=== PATIENT | female | born 1990 | race Caucasian/White ===

== ENCOUNTER → 2016-12-04 | Outpatient (CLI) | payer OTHER ==
[~2016-12-04] MED LIST: OXYC-57 PO; PRENTAB26 PO
[2016-12-04 18:23] LABS: URINE APPEARANCE CLEAR (CLEAR); URINE BILIRUBIN NEG (NEG); URINE COLOR YELLOW; URINE EPITHELIAL CELL AUTO >30 /lpf (0-5); URINE NITRITE NEG (NEG); URINE PH 6.5 (4.5-7.5); URINE SPECIFIC GRAVITY 1.012 (1.000-1.030); UROBILINOGEN NEG (NEG)
[2016-12-04 18:25] LABS: MANUAL MICROSCOPIC REQUIRED? NO; REVIEW REQ? YES
== END | disposition home or self-care (01) ==
LOC: C.LABSPEC 17:24
PROVIDERS: ATTEND Obstetrics & Gynecology
DX: Z34.93 Encounter for supervision of normal pregnancy, unspecified, third trimester (principal)

== ENCOUNTER → 2016-12-04 | Outpatient (CLI) | payer OTHER ==
[2016-12-04 16:19] LABS: HEMATOCRIT 33.3 % (37-47)
[2016-12-04 18:16] LABS: GTGD 50 Grams
== END | disposition home or self-care (01) ==
LOC: C.LAB1850 15:06
PROVIDERS: ATTEND Obstetrics & Gynecology
DX: Z34.93 Encounter for supervision of normal pregnancy, unspecified, third trimester (principal)

== ENCOUNTER → 2017-01-18 | Outpatient (CLI) | payer OTHER ==
[2017-01-18 09:53] LABS: BASO % 0.1 %; BASO ABS # 0.01 K/uL (0-0.2); COMPLETE YES; EOS % 0.8 %; HEMATOCRIT 35.8 % (37-47); LYMPH % 14.7 %; LYMPH ABS # 1.22 K/uL (1.2-3.4); MEAN CELL VOLUME 86.7 fL (80-100); MEAN CORPUSCULAR HEMOGLOBIN 28.8 pg (25-34); MEAN CORPUSCULAR HGB CONC 33.2 g/dl (32-36); MEAN PLATELET VOLUME 11.4 fL (7.4-10.4); MONO % 6.3 %; NEUT % 77.1 %; PLATELET COUNT 142 K/uL (130-400); RED BLOOD COUNT 4.13 M/uL (4.2-5.4); WHITE BLOOD COUNT 8.31 K/uL (4.8-10.8)
[2017-01-18 10:19] LABS: ALT/SGPT 20 U/L (12-78); AST/SGOT 22 U/L (15-37); CREATININE 0.76 mg/dl (0.60-1.20); URIC ACID 4.6 mg/dl (2.6-7.2)
[2017-01-18 10:23] LABS: URINE TOTAL PROTEIN 15.1 mg/dl (0-11.9)
[2017-01-18 11:28] LABS: URINE TOTAL PROTEIN CALC 324.7 mg/24 hr (0-149.1)
== END | disposition home or self-care (01) ==
LOC: C.LAB 08:28
PROVIDERS: ATTEND Obstetrics & Gynecology
DX: O10.919 Unspecified pre-existing hypertension complicating pregnancy, unspecified trimester (principal); Z3A.00 Weeks of gestation of pregnancy not specified

== ENCOUNTER → 2017-01-26 | Outpatient (CLI) | payer OTHER ==
[2017-01-26 16:27] LABS: BASO % 0.1 %; BASO ABS # 0.01 K/uL (0-0.2); COMPLETE YES; EOS % 0.5 %; HEMATOCRIT 33.5 % (37-47); IG% 1.1 %; LYMPH % 13.9 %; LYMPH ABS # 1.29 K/uL (1.2-3.4); MEAN CELL VOLUME 84.8 fL (80-100); MEAN CORPUSCULAR HEMOGLOBIN 28.6 pg (25-34); MEAN CORPUSCULAR HGB CONC 33.7 g/dl (32-36); MEAN PLATELET VOLUME 11.4 fL (7.4-10.4); MONO % 6.5 %; NEUT % 77.9 %; PLATELET COUNT 145 K/uL (130-400); RED BLOOD COUNT 3.95 M/uL (4.2-5.4); WHITE BLOOD COUNT 9.29 K/uL (4.8-10.8)
[2017-01-26 17:05] LABS: ALT/SGPT 28 U/L (12-78); AST/SGOT 35 U/L (15-37); BLOOD UREA NITROGEN 9 mg/dl (7-18); BUN/CREATININE RATIO 13.9 (10-20); CALCIUM 8.9 mg/dl (8.5-10.1); CARBON DIOXIDE 23 mmol/L (21-32); CHLORIDE 109 mmol/L (98-107); CREATININE 0.68 mg/dl (0.60-1.20); GLUCOSE 79 mg/dl (70-99); SODIUM 142 mmol/L (136-145)
[2017-01-26 17:08] LABS: ALB/GLOB RATIO 0.7 (0.9-2); ALKALINE PHOSPHATASE 164 U/L (45-117)
== END | disposition home or self-care (01) ==
LOC: C.LAB1850 15:54
PROVIDERS: ATTEND Obstetrics & Gynecology
DX: O14.00 Mild to moderate pre-eclampsia, unspecified trimester (principal); Z3A.00 Weeks of gestation of pregnancy not specified

== ENCOUNTER 2017-02-04 06:55 | Inpatient (IN) | payer OTHER ==
[2017-02-03 15:12] VITALS: BMI 42.0
[2017-02-03 16:02] LABS: BASO % 0.1 %; BASO ABS # 0.01 K/uL (0-0.2); COMPLETE YES; EOS % 0.4 %; HEMATOCRIT 34.2 % (37-47); IG% 1.3 %; LYMPH % 15.1 %; LYMPH ABS # 1.37 K/uL (1.2-3.4); MEAN CELL VOLUME 86.4 fL (80-100); MEAN CORPUSCULAR HEMOGLOBIN 28.5 pg (25-34); MEAN PLATELET VOLUME 11.2 fL (7.4-10.4); MONO % 7.7 %; NEUT % 75.4 %; PLATELET COUNT 146 K/uL (130-400); RED BLOOD COUNT 3.96 M/uL (4.2-5.4); WHITE BLOOD COUNT 9.07 K/uL (4.8-10.8)
[2017-02-03 16:12] LABS: URINE APPEARANCE CLEAR (CLEAR); URINE BILIRUBIN NEG (NEG); URINE COLOR YELLOW; URINE EPITHELIAL CELL AUTO >30 /lpf (0-5); URINE NITRITE NEG (NEG); URINE PH 6.5 (4.5-7.5); URINE SPECIFIC GRAVITY 1.019 (1.000-1.030); UROBILINOGEN NEG (NEG)
[2017-02-03 16:22] LABS: MANUAL MICROSCOPIC REQUIRED? NO; REVIEW REQ? NO
[2017-02-04] VITALS (10 sets, daily range): BP systolic 109–127; BP diastolic 70–83; PULSE 96–98; TEMP 37–37.2; O2SAT 94–97; Ht 142.2 cm; Wt 85.3 kg
[~2017-02-04] VITALS: Ht 142.2 cm; Wt 85.3 kg
[~2017-02-04 06:55] MED LIST changes: +CEFAZOLIN IV 2,000 MG in DEXTROSE 5% 50ML IV SCH; +CITRIC ACID/SODIUM CITRATE 15 ML UDC PO SCH; +EpHEDrine SULFATE INJ 50 MG/ML AMP ONE; +FENTANYL CITRATE INJ 50 MCG/1 ML 2 ML VIAL ONE; +LACTATED RINGER'S 1000ML 1,000 ML IV SCH; +MoRPHine SULFATE PF 1 MG/ML 10 ML AMP/VIAL ONE; +ONDANSETRON INJ 2 MG/ML 2 ML VIAL ONE; -OXYC-57 PO; +OXYTOCIN INJ 10 UNITS/ML VIAL ONE; +PHENYLEPHRINE HCL INJ 10 MG/ML VIAL ONE
[2017-02-04 07:34] LABS: HEMATOCRIT 33.8 % (37-47); MEAN CELL VOLUME 86.2 fL (80-100); MEAN CORPUSCULAR HEMOGLOBIN 27.8 pg (25-34); MEAN PLATELET VOLUME 10.5 fL (7.4-10.4); PLATELET COUNT 133 K/uL (130-400); RED BLOOD COUNT 3.92 M/uL (4.2-5.4); WHITE BLOOD COUNT 8.21 K/uL (4.8-10.8)
[2017-02-04 07:35] LABS: MEAN CORPUSCULAR HGB CONC 32.2 g/dl (32-36)
--- NOTE | 2017-02-04 07:57 | HISTORY & PHYSICAL EXAMINATION ---
DATE OF ADMISSION: 02/04/2017 REASON FOR ADMISSION: Planned repeat section. HISTORY OF PRESENT ILLNESS: This is a 26-year-old G2, P1-0-0-1, who presents with a at term for a planned repeat section. has been complicated by chronic hypertension with superimposed mild preeclampsia. She is also group B Strep positive. testing has been reassuring and at the present time she has good movement, no contractions, leakage of fluid or bleeding. ALLERGIES: None. MEDICATIONS: vitamins. PAST MEDICAL HISTORY: Varicella in childhood. PAST SURGICAL HISTORY: Oral surgery and in the past. SOCIAL HISTORY: , , negative x3. OBSTETRIC HISTORY: Prior 40 week section due to failure to progress with a 6 pound 7 ounce female baby in 2013. That was also complicated by induced hypertension. PHYSICAL EXAMINATION: Exam today vitals are within normal limits, see record. Her fetus has heart tones 145, moderate variability, positive excels, no decels. Her toco is irritable but not appreciated by the patient as any painful contractions. CERVIX EXAMINATION: Deferred at this time. HEART: Shows regular rate and rhythm. LUNGS: Clear to auscultation bilaterally. ABDOMEN: Gravid and soft, nontender. ASSESSMENT AND PLAN: A cueto intrauterine at 37+ weeks with superimposed mild preeclampsia on chronic hypertension for repeat section. The patient is preparing for the operating room now and will be brought to surgery shortly.
[2017-02-04] MEDS ORDERED: LACTATED RINGER'S 1000ML 1,000 ML IV SCH (08:43)
[2017-02-04] MEDS ORDERED: OXYTOCIN INJ 30 UNITS in LACTATED RINGER'S 1000ML 1,000 ML IV SCH (08:43)
[2017-02-04] MEDS ORDERED: LANOLIN OINT EXT PRN ×2 (08:45)
[2017-02-04] MEDS ORDERED: BENZOCAINE 20% AER SPR 82.5 GM CAN EXT PRN (08:45)
[2017-02-04] MEDS ORDERED: DIPHTHERIA/TETANUS/PERTUSSIS 0.5 ML SYR/VIAL IM. ONE (08:45)
[2017-02-04] MEDS ORDERED: HYDROCORTISONE ACETATE 25 MG SUPP PR PRN (08:45)
[2017-02-04] MEDS ORDERED: SUPERCREAM 0.870 % 15GM JAR EXT PRN (08:45)
--- NOTE | 2017-02-04 08:47 | [facility] Post Operative Brief Note ---
Immediate Operative Summary Operative Date Feb 04, 2017. Pre-Operative Diagnosis 1. Prior Caesarean Section 2. Declines Trial of Labor Post-Operative Diagnosis Same Procedure(s) Performed Repeat lower uterine transverse caesarean section for the of a viable female child at 0814. Surgeon Dr. Mcmahan Loft Worker Head Surgeon(s) Dr. Diaz Estimated Blood Loss 500cc Findings Normal tubes/ovaries bilaterally. Specimens 1. Placenta: Exam 2. Cord blood obtained Complication(s) None Disposition L&D
--- NOTE | 2017-02-04 08:52 | [facility] Post Operative Brief Note ---
Immediate Operative Summary Operative Date Feb 04, 2017. Pre-Operative Diagnosis 1. Prior Caesarean Section 2. Declines Trial of Labor Post-Operative Diagnosis Same Procedure(s) Performed Repeat lower uterine transverse caesarean section for the of a viable female child at 0814. Surgeon Dr[address] Mcmahan Sommelier Surgeon(s) Dr. Diaz Estimated Blood Loss 500cc Findings Delivered a viable female , APGARS 9,9. Weight 7 lbs 12oz. Normal uterus , fallopian tubes and ovaries bilaterally Specimens 1. Placenta: Exam 2. Cord blood obtained Drains Castro to gravity Anesthesia spinal Complication(s) None Disposition L&D
[2017-02-04] MEDS ORDERED: NALOXONE HCL INJ 0.08 MG in SYRINGE 1.8 ML IV PRN (08:54)
[2017-02-04] MEDS ORDERED: SODIUM CHLORIDE 0.9% 1000ML 1,000 ML IV PRN (08:54)
[2017-02-04] MEDS ORDERED: LACTATED RINGER'S 1000ML 500 ML IV PRN (08:54)
--- NOTE | 2017-02-04 08:56 | Anesthesiology Progress Note ---
Anesthesia Post Op Note Date & Time Feb 04, 2017 at 08:54 Notes Mental Status: alert / awake / arousable, participated in evaluation Pt Amnestic to Procedure: No (recall as expected) Nausea / Vomiting: adequately controlled Pain: adequately controlled Airway Patency, RR, SpO2: stable & adequate BP & HR: stable & adequate Hydration State: stable & adequate Neuraxial Anesthesia: was administered, sensory block is resolving Anesthetic Complications: no major complications apparent Pt had C/S under spinal. Her anesthetic course was totally unremarkable. Post- op vitals: BP 144/89, HR 73, RR 18, SpO2 98% on RA, T 36.8.
[2017-02-04] MEDS ORDERED: EpHEDrine SULFATE INJ 50 MG/ML AMP IV PRN (09:00)
[2017-02-04] MEDS ORDERED: NALBUPHINE HCL INJ 10 MG/ML AMP IV PRN (09:00)
[2017-02-04] MEDS ORDERED: MoRPHine SULFATE PF 1 MG/ML 10 ML AMP/VIAL EPI PRN (09:00)
[2017-02-04] MEDS ORDERED: NO NARCOTICS OR SEDATIVES SCH (09:00)
[2017-02-04] MEDS ORDERED: NALOXONE HCL 0.4 MG/1 ML VIAL/CARP IV PRN (09:00)
[2017-02-04] MEDS ORDERED: MoRPHine SULFATE 2 MG/ML CARP IV PRN (09:00)
[2017-02-04] MEDS ORDERED: ONDANSETRON INJ 2 MG/ML 2 ML VIAL IV PRN (09:00)
[2017-02-04] MEDS ORDERED: KETOROLAC TROMETHAMINE 30 MG/ML VIAL IV. PRN (09:00)
[2017-02-04] MEDS ORDERED: MEPERIDINE HCL 25 MG/ML CARP IV PRN (09:00)
[2017-02-04] MEDS: SIMETHICONE 80 MG CHEW PO SCH ×4 (09:00→19:45)
[2017-02-04] MEDS ORDERED: PROMETHAZINE HCL INJ 25 MG in SODIUM CHLORIDE 0.9% 50ML 50 ML IV PRN (09:00)
[2017-02-04] MEDS ORDERED: DiphenhydrAMINE HCL 50 MG/ML VIAL IV PRN (09:00)
--- NOTE | 2017-02-04 09:19 | OPERATIVE REPORT ---
DATE OF OPERATION: 02/04/2017 PREOPERATIVE DIAGNOSES: 1. Campos intrauterine at 37 and 1. 2. Prior section. 3. Declines trial of labor. POSTOPERATIVE DIAGNOSES: Same. PROCEDURE: Repeat lower transverse uterine section for the of a viable female child at 08:14 a.m. SURGEON: Dr. Giana Mcmahan. STRUCTURAL IRONWORKER: PGY-1. ESTIMATED BLOOD LOSS: 500 mL. FINDINGS: Normal tubes and ovaries bilaterally. SPECIMENS: Placenta for exam and cord blood obtained. COMPLICATIONS: None. DISPOSITION: Stable in labor and delivery. DESCRIPTION OF PROCEDURE: Rosa was placed on the table in the supine position with a leftward tilt, prepped and draped in standard sterile fashion and a hard time-out was taken prior to proceeding. Please note spinal anesthesia had been established. Once anesthesia was tested and found to be adequate, a Pfannenstiel incision was created at the side of a prior scar. This was carried down sharply to the fascia, which was nicked using a scalpel and extended using a Maryam clamp and Bovie electrocautery. Saturnino clamps were then used to elevate the fascia, which was sharply and bluntly dissected off the underlying rectus muscle. The midline of the rectus was identified and sharply . Peritoneum was bluntly entered and this was then extended using pressure from the kapok and cotton machine operator's hands. Bladder blade was placed and a bladder flap was created. A low transverse uterine incision was then made in the usual manner with final entry to the uterus being made in a blunt manner using the surgeon's finger. Clear fluid was then encountered. The hysterotomy was extended laterally and then the head of the was elevated to the hysterotomy and the was delivered using mild fundal pressure. A loose nuchal cord x1 was reduced after delivery of head. Of note, the made respiratory efforts and was actually crying after only the head was delivered and as soon as the body was delivered, all 4 extremities were noted to move. The cord was doubly clamped and taken to the warmer by Dr. Henning who was scrubbed for delivery. The placenta was then delivered manually after collection of cord blood. Uterus was exteriorized and cleared of all clot and debris using a dry and damp lap sponge. Hysterotomy was then repaired in the usual 2-layer fashion using 0 Vicryl suture in a running locked manner with an imbricating second layer. Tubes and ovaries were examined and found to be normal bilaterally. The uterus was gently reapproximated to the abdomen and the gutters were cleared of all clot and debris using damp lap sponges. Hysterotomy was again examined and found to be hemostatic. The rectus were allowed to reapproximate naturally and the fascia was then closed using #1 Vicryl suture in a running nonlocked manner. At the completion of the repair, the fascia was examined and found to be free of defect. The subcutaneous tissue was copiously irrigated and then gently reapproximated using 3-0 chromic suture after which a 4-0 Monocryl was used to create a subcuticular skin closure and a Dermabond dressing was applied. The patient was then returned to her recovery room in stable condition with the Castro draining clear yellow urine. I attest to the content of the Intraoperative Record and any orders documented therein. Any exceptio ns are noted below.
[2017-02-04] MEDS ORDERED: MISOPROSTOL 200 MCG TAB ONE (10:11)
[2017-02-04] MEDS: DOCUSATE SODIUM 100 MG CAP PO SCH (19:45)
[2017-02-05] VITALS (7 sets, daily range): BP systolic 110–128; BP diastolic 71–84; PULSE 86–88; TEMP 36.4–36.9; O2SAT 94–98
[2017-02-05] MEDS ORDERED: DC INTRASPINAL MORPHINE SCH (02:00)
[2017-02-05] MEDS ORDERED: MEPERIDINE HCL 50 MG/ML CARP IV PRN (02:01)
[2017-02-05] MEDS ORDERED: ONDANSETRON INJ 2 MG/ML 2 ML VIAL IV PRN (02:01)
[2017-02-05] MEDS ORDERED: MEPERIDINE HCL 75 MG/ML CARP IV PRN (02:01)
[2017-02-05] MEDS ORDERED: KETOROLAC TROMETHAMINE 30 MG/ML VIAL IV. PRN (02:01)
[2017-02-05] MEDS ORDERED: OXYCODONE/ACETAMINOPHEN 5-325 TAB PO PRN (02:01)
[2017-02-05] MEDS ORDERED: PROMETHAZINE HCL INJ 25 MG in SODIUM CHLORIDE 0.9% 50ML 50 ML IV PRN (02:01)
[2017-02-05] MEDS ORDERED: DiphenhydrAMINE HCL 50 MG/ML VIAL IV PRN (02:01)
--- NOTE | 2017-02-05 07:01 | Progress Note ---
Subjective Feb 05, 2017. Subjective conversation w/ patient, physical exam Ambulation: limited ambulation (because of zepeda) Passing Gas: Yes Diet Tolerance: Regular Diet Lochia: Moderate Feeding Type: Breast Feeding Pain: 1/10 improves with medication Comment: Patient was seen at the bedside. No acute event overnight. Review of Systems Constitutional: No fever Respiratory: No cough, No shortness of breath Cardiac: No chest pain Breast: No breast lump Abdomen: No nausea, No pain, No vomiting Female : No dysuria denies headache Objective Vital Signs Date Time Temp Pulse Resp B/P Pulse Ox O2 Delivery O2 Flow Rate FiO2 02/05/17 03:25 36.8 86 16 110/71 95 Room Air 02/05/17 03:25 16 95 02/05/17 02:30 18 95 02/05/17 01:30 16 96 02/05/17 00:30 18 97 02/04/17 23:35 37.2 98 18 109/70 96 Room Air 02/04/17 23:35 96 Room Air 02/04/17 23:35 18 96 02/04/17 22:00 18 95 02/04/17 21:00 18 97 02/04/17 20:00 20 96 02/04/17 19:00 18 94 02/04/17 18:00 18 94 02/04/17 17:35 37.0 96 18 122/79 95 Room Air 02/04/17 17:00 18 96 02/04/17 16:00 96 Room Air 02/04/17 16:00 16 96 02/04/17 16:00 37.1 96 16 112/73 96 Room Air 02/04/17 14:02 96 Room Air 02/04/17 14:02 37.1 98 16 127/83 97 Room Air 02/04/17 14:02 16 97 02/04/17 14:02 Room Air Physical Exam General Appearance: WELL-APPEARING, WD/WN, obese Respiratory/Chest: chest non-tender, lungs clear, normal breath sounds Cardiovascular: regular rate, rhythm Abdomen: normal bowel sounds, non tender, soft Fundus: Firm, Relation to Umbilicus (about 1cm below) Incision Description: Clean, Dry & Intact Extremities: non-tender, no calf tenderness, + pedal edema Laboratory Results Last 24 Hours Test 02/04/17 07:25 02/05/17 06:00 White Blood Count 8.21 K/uL Red Blood Count 3.92 M/uL Hemoglobin 10.9 g/dL Hematocrit 33.8 % Mean Corpuscular Volume 86.2 fL Mean Corpuscular Hemoglobin 27.8 pg Mean Corpuscular Hemoglobin Concent 32.2 g/dl RDW Standard Deviation 43.3 fL RDW Coefficient of Variation 13.9 % Platelet Count 133 K/uL Mean Platelet Volume 10.5 fL Nucleated RBC Absolute Count (auto) 0.02 K/uL Nucleated Red Blood Cells % 0.2 % Medications Current Inpatient Medications Medications (Trade) Dose Ordered Sig/Abrahan Route Start Time Stop Time Status Last Admin Dose Admin Lactated Ringer's (Lr 1000ml) 1,000 ml @ 125 mls/hr Q8H IV 02/04/17 08:43 03/06/17 08:42 02/04/17 18:04 125 MLS/HR Ketorolac Tromethamine (Toradol Inj) 30 mg Q6H PRN IV. 02/05/17 02:01 02/09/17 08:44 Meperidine HCl (Demerol Inj) 50 mg Q4H PRN IV 02/05/17 02:01 02/19/17 02:00 Meperidine HCl (Demerol Inj) 75 mg Q4H PRN IV 02/05/17 02:01 02/19/17 02:00 Oxycodone/ Acetaminophen (Percocet 5-325mg Tab) 1 tab Q4H PRN PO 02/05/17 02:01 02/19/17 02:00 Oxycodone/ Acetaminophen (Percocet 5-325mg Tab) 2 tab Q4H PRN PO 02/05/17 02:01 02/19/17 02:00 Ibuprofen 600 mg 600 mg Q4H PRN PO 02/04/17 08:45 03/06/17 08:44 Promethazine HCl/ Sodium Chloride (Phenergan Inj/ Nss 50ml) 51 ml @ 204 mls/hr Q4H PRN IV 02/05/17 02:01 03/07/17 02:00 Ondansetron HCl (Zofran Inj) 4 mg Q4H PRN IV 02/05/17 02:01 03/07/17 02:00 Prenat Multivit/ [place]/Iron/Folic Ac ( Vitamin Tab) 1 tab DAILY PO 02/05/17 08:00 03/07/17 07:59 Docusate Sodium (coLACE CAP) 100 mg BID PO 02/04/17 20:00 03/06/17 19:59 02/04/17 19:45 100 MG Cocaine HCl (Supercream 0.870% Cr) BID PRN EXT 02/04/17 08:45 02/18/17 08:44 Lanolin (Lanolin Oint) PRN PRN EXT 02/04/17 08:45 03/06/17 08:44 Hydrocortisone Acetate (Anusol Hc Supp) 25 mg BID PRN [place] 02/04/17 08:45 03/06/17 08:44 Benzocaine (Dermoplast Aero Spr) 1 appln PRN PRN EXT 02/04/17 08:45 03/06/17 08:44 Simethicone (Mylicon Chew Tab) 80 mg QID PO 02/04/17 09:00 03/06/17 08:59 02/04/17 19:45 80 MG Diphenhydramine HCl (Benadryl Cap) 25 mg QID PRN PO 02/05/17 02:01 03/07/17 02:00 Diphenhydramine HCl (Benadryl Inj) 25 mg QID PRN IV 02/05/17 02:01 03/07/17 02:00 Assessment and Plan Post-Op Day#: 1 Continue Routine Care: A/P: This is a 26 y/o female, , s/p elective repeat . She is ambulating and clinically stable. Plan: - Vitals signs are reviewed and WNL (Tmax 37.2 ) - Last Hgb is 10.9 - Blood type O+, GBS +, Rubella Immune - Routine care - Encourage ambulation, monitor and control pain with medication as needed , continue with regular diet as tolerated and monitor lochia - Stool softeners and sitz bath recommended - Encourage breast feeding and educate about breast feeding Resident Physician Supervision Note: I interviewed and examined the patient. Discussed with Dr. Diaz and agree with findings and plan as documented in the note. Any exceptions or clarifications are listed here: [None] Documented By: Giana Mcmahan
[2017-02-05 07:57] LABS: BASO % 0.1 %; BASO ABS # 0.01 K/uL (0-0.2); COMPLETE YES; EOS % 0.7 %; HEMATOCRIT 29.3 % (37-47); IG% 0.6 %; LYMPH % 12.3 %; LYMPH ABS # 0.89 K/uL (1.2-3.4); MEAN CELL VOLUME 86.4 fL (80-100); MEAN CORPUSCULAR HGB CONC 32.4 g/dl (32-36); MEAN PLATELET VOLUME 9.5 fL (7.4-10.4); MONO % 4.6 %; NEUT % 81.7 %; PLATELET COUNT 110 K/uL (130-400); RED BLOOD COUNT 3.39 M/uL (4.2-5.4); WHITE BLOOD COUNT 7.23 K/uL (4.8-10.8)
[2017-02-05] MEDS: IBUPROFEN 600 MG TAB PO PRN ×3 (09:17→19:48)
[2017-02-05] MEDS: OXYCODONE/ACETAMINOPHEN 5-325 TAB PO PRN ×3 (09:18→19:48)
[2017-02-05] MEDS: PRENATAL VITAMIN TAB PO SCH (09:19)
[2017-02-05] MEDS: DOCUSATE SODIUM 100 MG CAP PO SCH ×2 (09:19→20:59)
[2017-02-05] MEDS: SIMETHICONE 80 MG CHEW PO SCH ×4 (09:20→20:59)
[2017-02-06 00:30] VITALS: BP 118/75; PULSE 85; TEMP 36.7
[2017-02-06] MEDS: OXYCODONE/ACETAMINOPHEN 5-325 TAB PO PRN ×5 (00:54→21:32)
[2017-02-06] MEDS: IBUPROFEN 600 MG TAB PO PRN ×5 (00:55→21:32)
[2017-02-06] MEDS: PRENATAL VITAMIN TAB PO SCH (08:04)
[2017-02-06] MEDS: SIMETHICONE 80 MG CHEW PO SCH ×4 (08:04→19:28)
[2017-02-06] MEDS: DOCUSATE SODIUM 100 MG CAP PO SCH ×2 (08:04→19:28)
[2017-02-06 08:15] VITALS: BP 135/92; PULSE 93; TEMP 36.8
--- NOTE | 2017-02-06 08:21 | Discharge Instructions ---
Discharge Instructions Date of Service Feb 04, 2017. Admission Reason for Admission: Previous Section Discharge Discharge Diagnosis / Problem: s/p repeat elective Discharge Goals Goal(s): Routine recovery after Medications Continue Dispensed Medications: supercream, dermaplast, tucks, lansinoh Activity Recommendations Activity Limitations: as noted below . Instructions / Follow-Up Instructions / Follow-Up ACTIVITY RECOMMENDATIONS: * Gradual return to full activity over the next 2-3 weeks. * No lifting - nothing heavier than baby over the next 2-3 weeks. * Do not engage in vigorous exercise, sexual activity or sports until cleared by your physician. * Do not drive or operate any motorized equipment until cleared by your physician. * You may shower/bathe daily. MEDICATIONS: For discomfort or pain, you may use Acetaminophen (Tylenol), Ibuprofen (Advil), or Naproxen (Aleve) following the package directions. For constipation you may use Colace following the package directions. BREAST CARE: If you are not breast feeding: * Wear a supportive bra 24 hours a day for one to two weeks. * Avoid stimulating your breasts and nipples as much as possible during the first few weeks after delivery. * When taking a shower, have the warm water hit your back, not breasts. * When your breasts feel full, apply ice packs. Usually three to four times a day helps ease the discomfort. * Take a mild pain medication (Tylenol / Motrin) when you are uncomfortable. If breast feeding: * Use breast milk to lubricate nipples. Lansinoh cream may be used for sore nipples. You do not need to remove cream prior to breast feeding. If using a different brand of cream, check the label for directions regarding removal of cream prior to nursing. * Wear a supportive bra. * If having problems with breasts or breast feeding, call a information consultant or your health care provider. SPECIAL CARE INSTRUCTIONS: When you are discharged from the hospital, it is important for you to follow the instructions listed below: * During the first week at home, you should be able to care for yourself and your baby. In addition, the usual light household activities are encouraged. * Limit your activities to the way you feel. Do not try to clean the house or move furniture. Be sensible. * If you actively engage in sports and have done so up until the time of your delivery, you may resume these activities as soon as you feel able. This may take up to one month or even longer. Use good judgment. * Continue to take your vitamins for at least six weeks after the of your baby. * Your diet need not be limited unless you were on a special diet before your delivery. Breast-feeding mothers need around 2500 calories per day and at least 64-80 ounces of fluid per day (8 to 10 glasses). * You should eat foods from the four major food groups. Crash diets or fad diets are to be avoided. Eating lean meats, fresh fruits and vegetables, low-fat dairy products, high fiber foods and a regular exercise program, will help you get back to your pre- weight without putting your health at risk. * Constipation is sometimes a problem after delivery. Take a mild laxative as needed. If breast feeding, Milk of Magnesia is acceptable to use. You may use a suppository or Fleets enema. * A daily shower or tub bath is suggested. Wash incision daily with warm soapy water and pat dry. It doesn't need to be covered unless drainage is present. * A bloody vaginal discharge will usually continue until around four weeks . A small amount of bleeding may continue for as long as six weeks. Vaginal discharge changes from the bright red bleeding after delivery to pink then brownish and finally yellowish-pink before becoming white and disappearing. * Bleeding may increase with activity. Your first period may come in 4-8 weeks. If you are breast feeding, your period may be delayed even longer. * [place] (sex) can begin whenever both you and your partner feel comfortable and do not have any form of genital infection. It is recommended that you wait at least six weeks for internal and external healing to occur. If you have questions, please talk to your health care practitioner. A condom should be used to prevent infection and . * Foreplay, gentle intercourse and lubrication is very important the first several times to prevent pain. A water-based lubricant such as K-Y jelly or Astroglide may be used. * If you have RH negative blood and your baby is RH positive, you will receive RHOGAM by injection prior to discharge. The nurse will give you a card to keep with you that has the date and place that you received RHOGAM after delivery. * During your care, you had a Rubella screen done to check for the presence of rubella antibodies in your blood. If your test was negative, you will receive a Rubella vaccine prior to discharge. This vaccine may cause a fever, soreness at the injection site and flu-like symptoms. If these symptoms persist, notify your health care practitioner. is not advised for one month after a Rubella vaccine. * Verbalizes understanding of car seat law as reviewed with patient nursing. * Car Seat hand-out given and reviewed with patient by nursing. * Shaken baby information reviewed with patient by nursing. Call you doctor if: * Heavy bleeding (saturating several pads an hour) or passing clots the size of your fist. * A fever >101 degrees F (38.3 degrees C) on two occasions four hours apart and /or chills. * Unusual pain in the pelvic or vaginal areas. * Call the doctor for any increased redness, drainage or swelling around the incision and any pain unrelieved by prescribed pain medication. * "Baby Blues" lasting longer than two weeks. If you have any questions or concerns, call your health care practitioner at . FOLLOW UP VISIT: * Please call the office at to schedule a 6 week examination. It is important you keep this appointment. It is important for you to make arrangements for either yearly or twice yearly check-ups thereafter. Current Hospital Diet Patient's current hospital diet: Clear Liquid Diet Discharge Diet Recommended Diet: Regular Diet Procedures Procedures Performed: Repeat lower uterine transverse caesarean section for the of a viable female child at 0814. Pending Studies Studies pending at discharge: no Medical Emergencies . Who to Call and When: Medical Emergencies: If at any time you feel your situation is an emergency, please call [phone] immediately. . Non-Emergent Contact Non-Emergency issues call your: Clinical Unit Educator Call Non-Emergent contact if: you have a fever, temperature is above 101 . . "Provider Documentation" section prepared by Toney Diaz. . VTE Core Measure Inpt VTE Proph given/why not?: Treatment not indicated
[2017-02-06] MEDS ORDERED: OXYC-57 PO (08:23)
--- NOTE | 2017-02-06 08:25 | Progress Note ---
Subjective Feb 06, 2017. Subjective conversation w/ patient, physical exam Ambulation: ambulating normally Voiding: no voiding problems Passing Gas: Yes Diet Tolerance: Regular Diet Lochia: Small Feeding Type: Breast Feeding Pain: 1/10 improves with the pain medication Comment: Patient was seen at the bedside. No acute event overnight. Review of Systems Constitutional: No fever Respiratory: No cough, No shortness of breath Cardiac: No chest pain Breast: No breast lump Abdomen: No nausea, No pain, No vomiting Female : No dysuria Denies headache Objective Vital Signs Date Time Temp Pulse Resp B/P Pulse Ox O2 Delivery O2 Flow Rate FiO2 02/06/17 00:30 36.7 85 18 118/75 Room Air 02/06/17 00:30 Room Air 02/05/17 15:30 36.4 87 16 128/84 97 Room Air 02/05/17 15:15 Room Air 02/05/17 12:00 36.8 88 16 113/72 98 Room Air Physical Exam General Appearance: WELL-APPEARING, WD/WN Respiratory/Chest: chest non-tender, lungs clear, normal breath sounds Cardiovascular: regular rate, rhythm Abdomen: normal bowel sounds, non tender, soft Fundus: Firm, Relation to Umbilicus (at the umbilicus) Incision Description: Clean, Dry & Intact Extremities: non-tender, no calf tenderness, + pedal edema Medications Current Inpatient Medications Medications (Trade) Dose Ordered Sig/Abrahan Route Start Time Stop Time Status Last Admin Dose Admin Lactated Ringer's (Lr 1000ml) 1,000 ml @ 125 mls/hr Q8H IV 02/04/17 08:43 03/06/17 08:42 02/04/17 18:04 125 MLS/HR Ketorolac Tromethamine (Toradol Inj) 30 mg Q6H PRN IV. 02/05/17 02:01 02/09/17 08:44 Meperidine HCl (Demerol Inj) 50 mg Q4H PRN IV 02/05/17 02:01 02/19/17 02:00 Meperidine HCl (Demerol Inj) 75 mg Q4H PRN IV 02/05/17 02:01 02/19/17 02:00 Oxycodone/ Acetaminophen (Percocet 5-325mg Tab) 1 tab Q4H PRN PO 02/05/17 02:01 02/19/17 02:00 02/06/17 08:06 1 TAB Oxycodone/ Acetaminophen (Percocet 5-325mg Tab) 2 tab Q4H PRN PO 02/05/17 02:01 02/19/17 02:00 Ibuprofen 600 mg 600 mg Q4H PRN PO 02/04/17 08:45 03/06/17 08:44 02/06/17 08:04 600 MG Promethazine HCl/ Sodium Chloride (Phenergan Inj/ Nss 50ml) 51 ml @ 204 mls/hr Q4H PRN IV 02/05/17 02:01 03/07/17 02:00 Ondansetron HCl (Zofran Inj) 4 mg Q4H PRN IV 02/05/17 02:01 03/07/17 02:00 Prenat Multivit/ [place]/Iron/Folic Ac ( Vitamin Tab) 1 tab DAILY PO 02/05/17 08:00 03/07/17 07:59 02/06/17 08:04 1 TAB Docusate Sodium (coLACE CAP) 100 mg BID PO 02/04/17 20:00 03/06/17 19:59 02/06/17 08:04 100 MG Cocaine HCl (Supercream 0.870% Cr) BID PRN EXT 02/04/17 08:45 02/18/17 08:44 Lanolin (Lanolin Oint) PRN PRN EXT 02/04/17 08:45 03/06/17 08:44 Hydrocortisone Acetate (Anusol Hc Supp) 25 mg BID PRN [place] 02/04/17 08:45 03/06/17 08:44 Benzocaine (Dermoplast Aero Spr) 1 appln PRN PRN EXT 02/04/17 08:45 03/06/17 08:44 Simethicone (Mylicon Chew Tab) 80 mg QID PO 02/04/17 09:00 03/06/17 08:59 02/06/17 08:04 80 MG Diphenhydramine HCl (Benadryl Cap) 25 mg QID PRN PO 02/05/17 02:01 03/07/17 02:00 Diphenhydramine HCl (Benadryl Inj) 25 mg QID PRN IV 02/05/17 02:01 03/07/17 02:00 Assessment and Plan Post-Op Day#: 2 Continue Routine Care: A/P: This is a 26 y/o female, , s/p . She is ambulating and clinically stable to discharge. Patient will follow up in clinic in 1 week for BP and urine checkup. - Vital signs are reviewed and WNL (Tmax 36.9 ) - Last Hgb 9.5 - Blood type O+, GBS positive, Rubella Immune - No signs of depression. - Routine care - Discussed resting, feeding, pain control, mastitis, control, follow up in 6 weeks and reasons to call sooner, if necessary. - Continue with pain medication as needed, and continue vitamins. - Encourage breast feeding and educate about breast feeding - Patient understands and keen for home. - Plan to discharge home Resident Physician Supervision Note: I interviewed and examined the patient. Discussed with Dr. Diaz and agree with findings and plan as documented in the note. Any exceptions or clarifications are listed here: Doing well. Plan d/c today. Instructions given. Documented By: Fern Billy
[2017-02-06 16:00] VITALS: BP 133/89; PULSE 93; TEMP 37.1
[2017-02-06 23:20] VITALS: BP 126/83; PULSE 84; TEMP 36.6
[2017-02-07] MEDS: OXYCODONE/ACETAMINOPHEN 5-325 TAB PO PRN ×4 (01:04→14:43)
[2017-02-07] MEDS: IBUPROFEN 600 MG TAB PO PRN ×4 (01:05→14:43)
--- NOTE | 2017-02-07 07:36 | Progress Note ---
Subjective Feb 07, 2017. Subjective conversation w/ patient, physical exam, lab review Ambulation: ambulating normally Voiding: no voiding problems Passing Gas: Yes Diet Tolerance: Regular Diet Lochia: Small Feeding Type: Breast Feeding Pain: controlled with oral pain meds Objective Vital Signs Date Time Temp Pulse Resp B/P Pulse Ox O2 Delivery O2 Flow Rate FiO2 02/06/17 23:20 36.6 84 20 126/83 Room Air 02/06/17 23:20 Room Air 02/06/17 16:00 37.1 93 16 133/89 02/06/17 08:15 36.8 93 20 135/92 Physical Exam General Appearance: WELL-APPEARING, WD/WN, NO APPARENT DISTRESS Respiratory/Chest: lungs clear, normal breath sounds Cardiovascular: regular rate, rhythm Abdomen: normal bowel sounds, non tender, soft Fundus: Firm, Non-Tender, Relation to Umbilicus (at u) Incision Description: Clean, Dry & Intact Extremities: non-tender, normal inspection, + pedal edema (+1-2) Assessment and Plan Post-Op Day#: 3 Continue Routine Care: Doing well. bili levels on the baby are down. Plan d/c today. Instructions reviewed.
[2017-02-07 08:00] VITALS: BP 118/79; PULSE 86; TEMP 36.7
[2017-02-07] MEDS: SIMETHICONE 80 MG CHEW PO SCH ×2 (08:44→14:42)
[2017-02-07] MEDS: DOCUSATE SODIUM 100 MG CAP PO SCH (08:44)
[2017-02-07] MEDS: PRENATAL VITAMIN TAB PO SCH (08:44)
[2017-02-07 09:00] VITALS: BP 119/79; PULSE 86; TEMP 36.7
[2017-02-07 14:00] VITALS: BP_DIAS 79; PULSE 86; TEMP 36.7
--- NOTE | 2017-02-19 13:50 | DISCHARGE SUMMARY ---
COURSE OF CARE: Ms. Hurst was admitted for a planned repeat low transverse uterine section which was completed without complications on the morning of 02/04/2017. Postop course was uncomplicated and noted for a hemoglobin which nadired at 9.5. Vital signs which were within normal limits throughout the course of her care and the patient was discharged to home in good condition on the morning of 02/07/2017 with medications to include 30 tablets of Percocet to be used as needed for pain and with followup in the office at a 6-week interval.
== END 2017-02-07 14:55 | disposition home or self-care (01) | DRG 765 ==
LOC: C.LD 06:55 → C.OBG 13:50 → EDSTATUS 02-19 08:40
PROVIDERS: ADMIT Obstetrics & Gynecology; ATTEND Obstetrics & Gynecology
PROC: 10D00Z1 Extraction of Products of Conception, Low, Open Approach (ICD-10-PCS; principal; 2017-02-04 07:30)
DX: O11.4 Pre-existing hypertension with pre-eclampsia, complicating childbirth (principal); Z68.41 Body mass index [BMI] 40.0-44.9, adult; Z37.0 Single live birth; O99.824 Streptococcus B carrier state complicating childbirth; O34.219 Maternal care for unspecified type scar from previous cesarean delivery; O99.214 Obesity complicating childbirth; O69.81X0 Labor and delivery complicated by cord around neck, without compression, not applicable or unspecified; I10 Essential (primary) hypertension; E66.9 Obesity, unspecified; Z3A.37 37 weeks gestation of pregnancy

== ENCOUNTER → 2017-04-27 | Outpatient (CLI) | payer OTHER ==
[~2017-04-27] MED LIST changes: -CEFAZOLIN IV 2,000 MG in DEXTROSE 5% 50ML IV SCH; -CITRIC ACID/SODIUM CITRATE 15 ML UDC PO SCH; -EpHEDrine SULFATE INJ 50 MG/ML AMP ONE; -FENTANYL CITRATE INJ 50 MCG/1 ML 2 ML VIAL ONE; -LACTATED RINGER'S 1000ML 1,000 ML IV SCH; -MoRPHine SULFATE PF 1 MG/ML 10 ML AMP/VIAL ONE; -ONDANSETRON INJ 2 MG/ML 2 ML VIAL ONE; +OXYC-57 PO; -OXYTOCIN INJ 10 UNITS/ML VIAL ONE; -PHENYLEPHRINE HCL INJ 10 MG/ML VIAL ONE
--- NOTE | 2017-04-27 19:36 | ECHOCARDIOGRAM REPORT ---
*NOTICE TO RECEIVING [employer] This information is strictly Confidential and protected under [place] law. [place] law prohibits you from making any further disclosure of this information unless further disclosure is expressly permitted by the written consent of the person to whom it pertains or is authorized by law. A general authorization for the release of medical or other information is not sufficient for this purpose. Hospital accepts no responsibility if the information is made available to any other person, INCLUDING THE PATIENT. Interpretation Summary * Name: EDWIN MCDONOUGH Study Date: 04/27/2017 12:35 PM BP: 152/61 mmHg * Patient Location: [facility] HR: 77 * : 1990 (M/d/yyyy) Gender: Female Height: 56 in * Age: 26 yrs Ethnicity: [place] Weight: 162 lb * Ordering Physician: Mau Gallegos * Referring Physician: Mau Gallegos D.O. * Performed By: Mary Bobo RDCS * * Reason For Study: SYSTOLIC HEART MURMUR * BSA: 1.6 m2 * -- Conclusions -- * 1. Normal left ventricular size and systolic function. EF 60-65%. No regional wall motion abnormalities. No left ventricular hypertrophy. No significant diastolic dysfunction. * 2. No significant valvular abnormalities. * 3. No prior study available for comparison. Procedure Details * Left Ventricle Normal left ventricular size and systolic function. EF 60-65%. No regional wall motion abnormalities. No left ventricular hypertrophy. No significant diastolic dysfunction. * Right Ventricle The right ventricle is normal in size and function. The right ventricular systolic function is normal as assessed by tricuspid annular plane systolic excursion (TAPSE) (normal >1.5 cm). * Atria The left atrial size is normal. Right atrial size is normal. There is no evidence of atrial septal defect, but resolution does not allow assessment for a patent foramen ovale. * Mitral Valve The mitral valve leaflets appear normal. There is no evidence of stenosis, fluttering, or prolapse. There is no mitral regurgitation noted. * Tricuspid Valve The tricuspid valve is normal. There is no tricuspid stenosis. No tricuspid regurgitation. * Aortic Valve The aortic valve is normal in structure and function. No hemodynamically significant valvular aortic stenosis. No aortic regurgitation is present. * Pulmonic Valve The pulmonary valve is inadequately visualized, but the Doppler data is adequate for interpretation. There is no pulmonic valvular stenosis. There is no significant pulmonary regurgitation. * Great Vessels The aortic root is normal size. * Pericardium/Pleural There is no pericardial effusion. * Great Vessels Normal inferior vena cava size and collapsability with sniff indicates a normal right atrial pressure of 3 mmHg * Left Ventricular Diastolic Function Pulse wave TDI of the anterior and posterior mitral annulas demonstrates normal LV relaxation * * MMode 2D Measurements and Calculations * IVSd 1.1 cm * IVSs 1.5 cm * * LVIDd 4.2 cm * LVIDs 2.6 cm * LVPWd 0.96 cm * LVPWs 1.5 cm * * IVS/LVPW 1.1 * FS 37.9 % * EDV(Teich) 78.2 ml * ESV(Teich) 24.7 ml * EF(Teich) 68.4 % * * EDV(cubed) 73.6 ml * ESV(cubed) 17.7 ml * EF(cubed) 76.0 % * % IVS thick 42.4 % * % LVPW thick 61.2 % * * LV mass(C)d 139.2 grams * LV mass(C)dI 85.8 grams/m\S\2 * LV mass(C)s 137.5 grams * LV mass(C)sI 84.7 grams/m\S\2 * * SV(Teich) 53.5 ml * SI(Teich) 32.9 ml/m\S\2 * SV(cubed) 56.0 ml * SI(cubed) 34.5 ml/m\S\2 * * Ao root diam 2.7 cm * Ao root area 5.6 cm\S\2 * LA dimension 3.5 cm * * LA/Ao 1.3 * * LVAd ap4 26.8 cm\S\2 * LVLd ap4 8.6 cm * EDV(MOD-sp4) 70.1 ml * EDV(sp4-el) 71.0 ml * LVAs ap4 12.5 cm\S\2 * LVLs ap4 6.2 cm * ESV(MOD-sp4) 21.2 ml * ESV(sp4-el) 21.5 ml * EF(MOD-sp4) 69.7 % * EF(sp4-el) 69.8 % * * LVAd ap2 26.0 cm\S\2 * LVLd ap2 8.0 cm * EDV(MOD-sp2) 69.9 ml * EDV(sp2-el) 71.7 ml * LVAs ap2 15.4 cm\S\2 * LVLs ap2 7.1 cm * ESV(MOD-sp2) 29.4 ml * ESV(sp2-el) 28.3 ml * EF(MOD-sp2) 57.9 % * EF(sp2-el) 60.6 % * * LVLd %diff -7.42 % * EDV(MOD-bp) 72.7 ml * LVLs %diff 12.9 % * ESV(MOD-bp) 26.3 ml * EF(MOD-bp) 63.8 % * * SV(MOD-sp4) 48.8 ml * SI(MOD-sp4) 30.1 ml/m\S\2 * * SV(MOD-sp2) 40.5 ml * SI(MOD-sp2) 24.9 ml/m\S\2 * * SV(MOD-bp) 46.4 ml * SI(MOD-bp) 28.6 ml/m\S\2 * * SV(sp4-el) 49.6 ml * SI(sp4-el) 30.5 ml/m\S\2 * * SV(sp2-el) 43.4 ml * SI(sp2-el) 26.7 ml/m\S\2 * * * Doppler Measurements and Calculations * MV E max marco 101.4 cm/sec * MV A max marco 72.3 cm/sec * * MV E/A 1.4 * * MV dec time 0.21 sec * * Ao V2 max 158.4 cm/sec * Ao max PG 10.0 mmHg * Ao max PG (full) 4.8 mmHg * * LV V1 max PG 5.3 mmHg * * LV V1 max 114.9 cm/sec * * PA V2 max 125.9 cm/sec * PA max PG 6.3 mmHg * * *
== END | disposition home or self-care (01) ==
LOC: C.CPL 12:22
PROVIDERS: ATTEND Neuromusculoskeletal Medicine & OMM
DX: R01.1 Cardiac murmur, unspecified (principal)

== ENCOUNTER → 2017-04-28 | Outpatient (CLI) | payer OTHER ==
[2017-04-28 13:12] LABS: CHOLESTEROL/HDL RATIO 5.8; THYROID STIMULATING HORMONE 0.928 uIu/ml (0.300-4.500)
== END | disposition home or self-care (01) ==
LOC: C.LABPBG 10:48
PROVIDERS: ATTEND Neuromusculoskeletal Medicine & OMM
DX: Z00.00 Encounter for general adult medical examination without abnormal findings (principal)

== ENCOUNTER 2017-10-25 19:28 | Emergency (ER) | payer OTHER ==
[~2017-10-25] VITALS: Ht 142.2 cm; Wt 72.0 kg
[~2017-10-25 19:28] MED LIST changes: -OXYC-57 PO
[2017-10-25 19:31] VITALS: TEMP 36.4; Ht 142.2 cm; Wt 72.0 kg
[2017-10-25] MEDS ORDERED: KETOROLAC TROMETHAMINE 30 MG/ML VIAL IV STA (19:39)
[2017-10-25] MEDS ORDERED: ONDANSETRON INJ 2 MG/ML 2 ML VIAL IV STA (19:39)
[2017-10-25] MEDS ORDERED: SODIUM CHLORIDE 0.9% 1000ML 1,000 ML IV STA (19:39)
--- NOTE | 2017-10-25 19:52 | DIAGNOSTIC IMAGING REPORT ---
SINGLE VIEW CHEST CLINICAL HISTORY: Generalized abdominal pain. FINDINGS: An AP, portable, upright chest radiograph is obtained. No prior studies are available for comparison at the time of dictation. The examination is degraded by portable technique and patient rotation. The cardiomediastinal silhouette is unremarkable. The lungs and pleural spaces are clear. No pneumothorax is seen. The bony thorax is grossly intact. IMPRESSION: No active disease in the chest. Electronically signed by: Jamar Sauceda M.D. 10/25/2017 7:51 PM Dictated Date/Time: 10/25/2017 7:50 PM
[2017-10-25 20:12] LABS: BASO % 0.1 %; BASO ABS # 0.01 K/uL (0-0.2); EOS % 1.3 %; EOS ABS # 0.09 K/uL (0-0.5); HEMATOCRIT 41.5 % (37-47); HEMOGLOBIN 14.2 g/dL (12.0-16.0); IG# 0.02 K/uL (0.00-0.02); LYMPH % 26.3 %; LYMPH ABS # 1.76 K/uL (1.2-3.4); MEAN CELL VOLUME 88.9 fL (80-100); MEAN CORPUSCULAR HEMOGLOBIN 30.4 pg (25-34); MEAN CORPUSCULAR HGB CONC 34.2 g/dl (32-36); MEAN PLATELET VOLUME 10.3 fL (7.4-10.4); MONO % 5.7 %; MONO ABS # 0.38 K/uL (0.11-0.59); NEUT % 66.3 %; NEUT ABS # 4.42 K/uL (1.4-6.5); PLATELET COUNT 215 K/uL (130-400); RED CELL DISTRIBUTION WIDTH CV 12.2 % (11.5-14.5); RED CELL DISTRIBUTION WIDTH SD 38.7 fL (36.4-46.3); WHITE BLOOD COUNT 6.68 K/uL (4.8-10.8)
[2017-10-25 20:25] LABS: PTT PATIENT 28.3 SECONDS (21.0-31.0)
[2017-10-25 20:30] LABS: ALBUMIN 3.9 gm/dl (3.4-5.0); ALT/SGPT 31 U/L (12-78); AST/SGOT 19 U/L (15-37); BLOOD UREA NITROGEN 13 mg/dl (7-18); CALCIUM 9.4 mg/dl (8.5-10.1); CARBON DIOXIDE 28 mmol/L (21-32); CREATININE 0.83 mg/dl (0.60-1.20); GLUCOSE 104 mg/dl (70-99); LIPASE 128 U/L (73-393); POTASSIUM 3.9 mmol/L (3.5-5.1); SODIUM 137 mmol/L (136-145)
[2017-10-25 20:33] LABS: ALKALINE PHOSPHATASE 68 U/L (45-117); TOTAL PROTEIN 7.6 gm/dl (6.4-8.2)
--- NOTE | 2017-10-25 20:55 | DIAGNOSTIC IMAGING REPORT ---
ULTRASOUND RIGHT UPPER QUADRANT ABDOMEN CLINICAL HISTORY: Upper abdominal pain. COMPARISON STUDY: No priors. TECHNIQUE: Real-time, grayscale, and color flow sonography of the right upper quadrant of the abdomen was performed. Images are reviewed in the transverse and longitudinal planes. FINDINGS: Liver: The liver is normal in size and echotexture. There is no intrahepatic biliary ductal dilatation. The main portal vein is patent. There is a 3.9 cm hypoechoic lesion identified in the left hepatic lobe. Gallbladder: The gallbladder wall is top normal in thickness measuring 3 to 4 mm. No shadowing gallstones are identified. Trace pericholecystic fluid is questioned. A sonographic Gutierrez's sign is reportedly absent. The common bile duct measures up to 0.7 cm in diameter. Pancreas: Visualized portions of the pancreatic head and body are normal in appearance. The splenic vein is patent. Right kidney: Survey images of the right kidney demonstrate normal size and echotexture. There is no hydronephrosis. Ascites: None. IMPRESSION: 1. No shadowing gallstones are identified. There is equivocal mild gallbladder wall thickening and trace pericholecystic fluid is questioned. A sonographic Gutierrez's sign is reportedly absent. Findings are considered low suspicion for acute cholecystitis but this is not completely excluded. If further assessment is desired then a nuclear hepatobiliary scan could be considered. 2. There is an indeterminant 3.9 cm hypoechoic lesion in the left hepatic lobe. Top differential considerations included an atypical hemangioma or focal nodular hyperplasia in the absence of a cancer history. Follow-up with a nonemergent MRI of the liver is recommended for definitive characterization. Electronically signed by: Jamar Sauceda M.D. 10/25/2017 8:54 PM Dictated Date/Time: 10/25/2017 8:50 PM
[2017-10-25] MEDS ORDERED: BCPILLS PO (20:58)
--- NOTE | 2017-10-25 21:25 | EMERGENCY ROOM VISIT NOTE ---
History Report prepared by Andrae: Luis Toney Under the Supervision of: Dr. James Winters D.O. First contact with patient: 19:33 Chief Complaint: CHEST PAIN Stated Complaint: SOB,SIDE PAIN GOING TO BACK History of Present Illness The patient is a 27 year old female who presents to the Emergency Room with complaints of constant RUQ abdominal pain beginning a few hours ago. The patient states her discomfort radiates to her chest and back, but it is focused in her abdomen. She reports it started on her way home from work. The patient notes she ate little hot dogs with BBQ sauce for lunch 8 hours ago. She states movement does not change the intensity of her discomfort. The patient reports she became nauseous before leaving for the ED. She notes her LNMP was last week , and she has a history of two c-sections. The patient denies trouble moving her bowels and urinary symptoms. Source of History: patient Onset: few hours ago Position: abdomen (RUQ) Timing: constant Associated Symptoms: + chest pain, + nausea, + back pain, No urinary symptoms Note: Denies: trouble moving her bowels Review of Systems See HPI for pertinent positives & negatives. A total of 10 systems reviewed and were otherwise negative. Past Medical & Surgical Surgical Problems: (1) History of delivery, currently Family History Patient reports no known family medical history. Social History Smoking Status: Never Smoker Alcohol Use: none Marital Status: Housing Status: lives with significant other Occupation Status: employed Current/Historical Medications Scheduled Control Pills ( Control Pills), 1 TAB PO DAILY Allergies Coded Allergies: No Known Allergies (Unverified , 02/05/17) Physical Exam Vital Signs Date Time Temp Pulse Resp B/P (MAP) Pulse Ox O2 Delivery O2 Flow Rate FiO2 10/25/17 21:40 64 130/68 97 10/25/17 19:31 36.4 95 16 161/86 98 Room Air Physical Exam CONSTITUTIONAL/VITAL SIGNS: Reviewed / noted above. GENERAL: Non-toxic in appearance. INTEGUMENTARY: Warm, dry, and Blende. HEAD: Normocephalic. EYES: without scleral icterus or trauma. ENT/OROPHARYNX: clear and moist. LYMPHADENOPATHY/NECK: Is supple without lymphadenopathy or meningismus. RESPIRATORY: Lungs clear and equal. CARDIOVASCULAR: Regular rate and rhythm. GI/ABDOMEN: Soft and tender in the RUQ. No organomegaly or pulsatile mass. No rebound or guarding. Normal bowel sounds. EXTREMITIES: Warm and well perfused. BACK: No CVA tenderness. NEUROLOGICAL: Intact without focal deficits. PSYCHIATRIC: normal affect. MUSCULOSKELETAL: Normally developed with good muscle tone. Medical Decision & Procedures ER Provider Diagnostic Interpretation: Radiology results as stated below per my review and radiologist interpretation: ULTRASOUND RIGHT UPPER QUADRANT ABDOMEN CLINICAL HISTORY: Upper abdominal pain. COMPARISON STUDY: No priors. TECHNIQUE: Real-time, grayscale, and color flow sonography of the right upper quadrant of the abdomen was performed. Images are reviewed in the transverse and longitudinal planes. FINDINGS: Liver: The liver is normal in size and echotexture. There is no intrahepatic biliary ductal dilatation. The main portal vein is patent. There is a 3.9 cm hypoechoic lesion identified in the left hepatic lobe. Gallbladder: The gallbladder wall is top normal in thickness measuring 3 to 4 mm. No shadowing gallstones are identified. Trace pericholecystic fluid is questioned. A sonographic Gutierrez's sign is reportedly absent. The common bile duct measures up to 0.7 cm in diameter. Pancreas: Visualized portions of the pancreatic head and body are normal in appearance. The splenic vein is patent. Right kidney: Survey images of the right kidney demonstrate normal size and echotexture. There is no hydronephrosis. Ascites: None. IMPRESSION: 1. No shadowing gallstones are identified. There is equivocal mild gallbladder wall thickening and trace pericholecystic fluid is questioned. A sonographic Gutierrez's sign is reportedly absent. Findings are considered low suspicion for acute cholecystitis but this is not completely excluded. If further assessment is desired then a nuclear hepatobiliary scan could be considered. 2. There is an indeterminant 3.9 cm hypoechoic lesion in the left hepatic lobe. Top differential considerations included an atypical hemangioma or focal nodular hyperplasia in the absence of a cancer history. Follow-up with a nonemergent MRI of the liver is recommended for definitive characterization. Electronically signed by: Jamar Sauceda M.D. 10/25/2017 8:54 PM Dictated Date/Time: 10/25/2017 8:50 PM SINGLE VIEW CHEST CLINICAL HISTORY: Generalized abdominal pain. FINDINGS: An AP, portable, upright chest radiograph is obtained. No prior studies are available for comparison at the time of dictation. The examination is degraded by portable technique and patient rotation. The cardiomediastinal silhouette is unremarkable. The lungs and pleural spaces are clear. No pneumothorax is seen. The bony thorax is grossly intact. IMPRESSION: No active disease in the chest. Electronically signed by: Jamar Sauceda M.D. 10/25/2017 7:51 PM Dictated Date/Time: 10/25/2017 7:50 PM Laboratory Results 10/25/17 20:00 Red Blood Count 4.67, Mean Corpuscular Volume 88.9, Mean Corpuscular Hemoglobin 30.4, Mean Corpuscular Hemoglobin Concent 34.2, Mean Platelet Volume 10.3, Neutrophils (%) (Auto) 66.3, Lymphocytes (%) (Auto) 26.3, Monocytes (%) (Auto) 5.7, Eosinophils (%) (Auto) 1.3, Basophils (%) (Auto) 0.1, Neutrophils # (Auto) 4.42, Lymphocytes # (Auto) 1.76, Monocytes # (Auto) 0.38, Eosinophils # (Auto) 0.09, Basophils # (Auto) 0.01 10/25/17 20:00 Test 10/25/17 20:00 White Blood Count 6.68 K/uL (4.8-10.8) Red Blood Count 4.67 M/uL (4.2-5.4) Hemoglobin 14.2 g/dL (12.0-16.0) Hematocrit 41.5 % (37-47) Mean Corpuscular Volume 88.9 fL (80-100) Mean Corpuscular Hemoglobin 30.4 pg (25-34) Mean Corpuscular Hemoglobin Concent 34.2 g/dl (32-36) Platelet Count 215 K/uL (130-400) Mean Platelet Volume 10.3 fL (7.4-10.4) Neutrophils (%) (Auto) 66.3 % Lymphocytes (%) (Auto) 26.3 % Monocytes (%) (Auto) 5.7 % Eosinophils (%) (Auto) 1.3 % Basophils (%) (Auto) 0.1 % Neutrophils # (Auto) 4.42 K/uL (1.4-6.5) Lymphocytes # (Auto) 1.76 K/uL (1.2-3.4) Monocytes # (Auto) 0.38 K/uL (0.11-0.59) Eosinophils # (Auto) 0.09 K/uL (0-0.5) Basophils # (Auto) 0.01 K/uL (0-0.2) RDW Standard Deviation 38.7 fL (36.4-46.3) RDW Coefficient of Variation 12.2 % (11.5-14.5) Immature Granulocyte % (Auto) 0.3 % Immature Granulocyte # (Auto) 0.02 K/uL (0.00-0.02) Prothrombin Time 10.0 SECONDS (9.0-12.0) Prothromb Time International Ratio 1.0 (0.9-1.1) Activated Partial Thromboplast Time 28.3 SECONDS (21.0-31.0) Partial Thromboplastin Ratio 1.1 Urine Color YELLOW Urine Appearance CLOUDY (CLEAR) Urine pH 7.0 (4.5-7.5) Urine Specific [place] 1.026 (1.000-1.030) Urine Protein NEG (NEG) Urine Glucose (UA) NEG (NEG) Urine Ketones NEG (NEG) Urine Occult Blood NEG (NEG) Urine Nitrite NEG (NEG) Urine Bilirubin NEG (NEG) Urine Urobilinogen NEG (NEG) Urine Leukocyte Esterase MODERATE (NEG) Urine WBC (Auto) 10-30 /hpf (0-5) Urine RBC (Auto) 0-4 /hpf (0-4) Urine Hyaline Casts (Auto) 5-10 /lpf (0-5) Urine Epithelial Cells (Auto) >30 /lpf (0-5) Urine Bacteria (Auto) 2+ (NEG) Urine Test NEG (NEG) Anion Gap 5.0 mmol/L (3-11) Est Creatinine Clear Calc Drug Dose 79.8 ml/min Estimated GFR () 110.4 Estimated GFR (Non- 95.3 BUN/Creatinine Ratio 15.3 (10-20) Calcium Level 9.4 mg/dl (8.5-10.1) Total Bilirubin 0.2 mg/dl (0.2-1) Direct Bilirubin < 0.1 mg/dl (0-0.2) Aspartate Amino Transf (AST/SGOT) 19 U/L (15-37) Alanine Aminotransferase (ALT/SGPT) 31 U/L (12-78) Alkaline Phosphatase 68 U/L (45-117) Total Protein 7.6 gm/dl (6.4-8.2) Albumin 3.9 gm/dl (3.4-5.0) Lipase 128 U/L (73-393) Laboratory results as stated above per my review. Medications Administered Medications (Trade) Dose Ordered Sig/Abrahan Route Start Time Stop Time Status Last Admin Dose Admin Sodium Chloride 1,000 ml @ 999 mls/hr Q1H1M STAT IV 10/25/17 19:39 10/25/17 20:39 DC 10/25/17 19:54 999 MLS/HR Ondansetron HCl (Zofran Inj) 4 mg NOW STAT IV 10/25/17 19:39 10/25/17 19:40 DC 10/25/17 19:54 4 MG Ketorolac Tromethamine (Toradol Inj) 30 mg NOW STAT IV 10/25/17 19:39 10/25/17 19:40 DC 10/25/17 19:54 30 MG ED Course 1934: Previous medical records were reviewed. The patient was evaluated in room A04B. A complete history and physical examination was performed. 1938: Ordered Ketorolac Tromethamine 30mg IV, Ondansetron HCl 4mg IV, Sodium Chloride 1000 ml @ 999 mls/hr IV 2110: On reevaluation, the patient is feeling better. I discussed the results and findings with the patient. She verbalized agreement of the treatment plan. The patient was discharged home. Medical Decision Differential considered: pancreatitis, hepatitis, or acute cholecystitis, AAA, UTI, pyelonephritis, kidney stones, appendicitis, diverticulitis, shingles, bowel obstruction mesenteric ischemia, intussusception, hernia, testicular torsion, ovarian torsion, ruptured ovarian cyst, ectopic , . This is a 27-year-old female who presents to the ED with a chief complaint of right upper quadrant abdominal pain. The patient states that her symptoms started around 4:30 PM tonight. She states it was sudden in onset while she was driving her car. She also reported having a similar episode a couple of weeks ago. She has some associated nausea. No fevers. No cough. No shortness of breath or chest pains. Her vital signs revealed an initial hypertension. Her exam revealed some tenderness in the right upper quadrant and epigastric area. Chest x-ray was negative for acute disease. CBC is unremarkable, complete metabolic panel and lipase were negative. Urine appears contaminated. The patient denies urinary symptoms. Culture pending. test was negative. Call on ultrasound reveals low suspicion for acute cholecystitis. HIDA scan / MRI was recommended for nonemergent outpatient follow-up. The patient was treated with IV Toradol, Zofran IV and normal saline IV. She is felt to be stable for discharge and outpatient follow- up. Impression Primary Impression: RUQ abdominal mass Scribe Attestation The scribe's documentation has been prepared under my direction and personally reviewed by me in its entirety. I confirm that the note above accurately reflects all work, treatment, procedures, and medical decision making performed by me. Departure Information Dispostion Home / Self-Care Referrals Mau Gallegos D.O. (PCP) Patient Instructions [facility] Additional Instructions Follow-up with your doctor for recheck. Call tomorrow for an appointment. If symptoms persist, HIDA scan / MRI may be beneficial for further evaluation. Follow-up with your doctor for further care and evaluation in 1-2 days. Return to the emergency department for worsening or new symptoms or any concerns. You have been examined and treated today on an emergency basis only. This is not a substitute for, or an effort to provide, complete comprehensive medical care. It is impossible to recognize and treat all injuries or illnesses in a single emergency department visit. It is therefore important that you follow up closely with your doctor. Call as soon as possible for an appointment.
[2017-10-25 21:40] VITALS: BP 130/68; PULSE 64; O2SAT 97
== END 2017-10-25 21:41 | disposition home or self-care (01) ==
LOC: C.EDB 19:29 → C.EDA 21:41
DX: R19.01 Right upper quadrant abdominal swelling, mass and lump (principal); Z79.3 Long term (current) use of hormonal contraceptives

== ENCOUNTER → 2017-11-15 | Outpatient (CLI) | payer OTHER ==
[~2017-11-15] MED LIST changes: +BCPILLS PO; +GADOXETATE DISODIUM (NON-WT BASED PROCEDURE) IV PRN; -PRENTAB26 PO
--- NOTE | 2017-11-15 08:46 | DIAGNOSTIC IMAGING REPORT ---
MRI LIVER COMBO CLINICAL HISTORY: Left lobe liver lesion on ultrasound. COMPARISON STUDY: Right upper quadrant ultrasound October 25, 2017. TECHNIQUE: Utilizing a 1.5 Zhanna magnet and dedicated coil, multiplanar, multiecho imaging of the abdomen was performed pre and postcontrast administration. Post contrast imaging was performed utilizing dynamic enhancement following intravenous injection of 10 cc of Eovist. 20 minute delayed phase imaging was also performed. FINDINGS: Liver morphology is normal. Note is made of a 2.9 x 2.6 cm hypervascular lateral segment hepatic lesion which corresponds to the lesion shown on ultrasound of October 25, 2017. This lesion is nearly imperceptible on the T2-weighted sequence with only minimal T2 hyperintensity and nearly isointense on the venous phase portion of this exam. This lesion is hyperintense when compared to the background liver on the 20 minute delayed phase images. No additional hepatic lesions are present. There is no biliary ductal dilatation. The spleen, adrenal glands, kidneys and pancreas are normal. There is no pancreatic ductal dilatation. There is no abdominal adenopathy or ascites. No gallstones are identified. IMPRESSION: 2.9 cm lateral segment hepatic lesion which corresponds to the lesion shown on ultrasound of October 25, 2017. This is consistent with focal nodular hyperplasia, a benign lesion. Electronically signed by: Manjeet Hernandez M.D. 11/15/2017 8:45 AM Dictated Date/Time: 11/15/2017 8:29 AM
== END | disposition home or self-care (01) ==
LOC: C.MRI 07:28
PROVIDERS: ATTEND Family Medicine
DX: K76.89 Other specified diseases of liver (principal)